=== PATIENT | female | born 1985 | race Hispanic/Latino ===

== ENCOUNTER 2017-02-01 13:47 | Emergency (ER) | payer OTHER ==
[~2017-02-01 13:47] MED LIST: HYDR1TAB91 PO; IBUP-1152 PO; PRENATAL VIT
[2017-02-01 13:51] VITALS: BP 129/90; PULSE 70; RESP 16; O2SAT 97
[2017-02-01 14:38] VITALS: BP 115/72; PULSE 69; RESP 16; O2SAT 100
--- NOTE | 2017-02-01 15:06 | ED.REPORT ---
HPI-Headache Date of Service February 01, 2017 ED Provider: Dr. Perla The patient is a 31 y/o female with a history of depression and self mutilation , who presents to the ED with a headache she thinks may be associated with an abnormal bump present on the right side of her head. The bump has been present for several years but has not ever been painful. She has felt a burning pain over the last few days ago and this pain intensified last night. She describes the sensation to be a burning in her head and she believes the bump feels warm to the touch. The pain initially started at a 4/10 and is now an 8/10. Associated symptoms also include left shoulder pain, chills, nausea, and drowsiness. She denies fever, cough, chest pain, back pain, vomiting, and abdominal pain. She had a cold last week that has resolved. Nursing Notes Stated Complaint: HEADACHES Chief Complaint: Headache Nursing Notes Reviewed: Yes Allergies: Uncoded Allergies: BLUEBERRIES (Allergy, Unknown, 02/01/17) Scheduled PRN Hydrocod/APAP-Expunged, Do Not Renew! (Hydrocod/APAP-Expunged, Do Not Renew!) 1 Tab Tablet 1-2 TAB PO Q3 PRN PRN For Pain IBUPROFEN-Expunged Drug, Do Not Renew! (IBUPROFEN-Expunged Drug, Do Not Renew!) 800 Mg Tablet 800 MG PO Q6 PRN PRN For Pain Miscellaneous Medications ([ Vit]) General Time Seen by MD: 15:06 Transferred From: retirement Chief Complaint Headache Hx Obtained From: Patient Arrived By: Walk-in Sudden in Onset?: No Onset Occurred: 2 days ago Symptom Duration: Since onset Location: : Parietal right Quality: Burning, Painful Severity: Current: Moderate Severity: Maximum: Moderate Recent Healthcare: No recent doctor visit, No recent hospitalization Similar Sx Previous: Yes Past Medical History Past Medical History History of depression Self mutilation Past Surgical History No surgical history specified. Family History Noncontributory Smoking History Unknown if Ever Smoker Social History Other Social History: Good social support, Local resident Ambulatory Status Independent Review of Systems Review of Systems Note: +drowsiness Constitutional: Reports: Chills, Denies: Fever Ears / Nose / Throat: Denies: Sore throat GI: Reports: Nausea, Denies: Abdominal pain, Vomiting Musculoskeletal: Reports: Joint pain (left shoulder), Denies: Back pain Neurologic: Reports: Headache Complete sys rev & neg: except as marked. Respiratory: Denies: Non-productive cough Cardiovascular: Denies: Chest pain Physical Exam Initial Vital Signs Vital Signs (First) Date Time Temp Pulse Resp B/P Pulse Ox O2 Delivery O2 Flow Rate FiO2 02/01/17 13:51 36.6 70 16 129/90 97 Room Air Initial VS: Reviewed, Vital signs normal Respiratory: Breath sounds normal, No respiratory distress Cardiovascular: Regular rate & rhythm, Heart sounds normal Abdomen / GI: Soft, Non-tender Extremities: Vascular intact, Neuro intact, No swelling Skin: Warm, Dry, No cyanosis Psychiatric: Mood/affect normal, Behavior normal, Normal thought content General/Constitutional: Awake, Alert, Well appearing Head / Eyes: Normocephalic, PERRL Warty growth of 1cm on the right side of the head. Neck: Atraumatic, Supple, No meningismus, No adenopathy, No swelling Neurologic: Speech NL, No motor deficits, No sensory deficits Upper Extremity / MS: Full range of motion, Neurologic intact, Vascular intact Left Shoulder: Positive: Tenderness present... (Mild) Interpretation & Diagnostics Lab Results Interpretation Result Diagram: 02/01/17 1445 02/01/17 1445 Test 02/01/17 14:45 White Blood Count 5.0th/mm3 (3.8-10.1) Red Blood Count 4.38mil/mm3 (3.90-5.20) Hemoglobin 12.8g/dL (12.0-15.6) Hematocrit 39.3% (35.0-46.0) Mean Corpuscular Volume 89.7fL (81-100) Mean Corpuscular Hemoglobin 29.2pg (27.0-35.0) Mean Corpuscular Hemoglobin Concent 32.6% (32.0-37.0) Red Cell Distribution Width 12.9% (12.3-15.4) Platelet Count 268bil/L (150-400) Neutrophils (%) (Auto) 47.4% (40-74) Lymphocytes (%) (Auto) 42.4% (14-46) Monocytes (%) (Auto) 8.0% (4-12) Eosinophils (%) (Auto) 1.8% (0-5) Basophils (%) (Auto) 0.2% (0-3) Erythrocyte Sedimentation Rate 17mm/hr (0-32) Sodium Level 135mEq/L (134-144) Potassium Level 3.8mEq/L (3.5-5.2) Chloride Level 99mEq/L (97-108) Carbon Dioxide Level 25mmol/L (18-29) Blood Urea Nitrogen 11mg/dL (6-20) Creatinine 0.46mg/dL (0.57-1.00) Estimat Glomerular Filtration Rate 228mL/min (>59) Glucose Level 84mg/dL (60-99) Calcium Level 9.8mg/dL (8.5-10.1) Magnesium Level 2.0mg/dL (1.6-2.6) C-Reactive Protein 0.1mg/dL (0.0-0.5) Hold Felix Top Tube Received (Received) X-Ray Interpretation Xray Interpretation: IMPRESSION: Unremarkable left shoulder radiographs. No fracture. Dictated by: Ga Charles M.D. on 02/01/2017 at 15:07 Approved by: Ga Charles M.D. on 02/01/2017 at 15:08 X-Ray Ordered: Shoulder left Re-Eval/Medical Decision Med Decision/Clinical Course The patient's growth on the side of her head is a warty type growth, there is no sign of infection. As far as the patient's headache there are no concerning symptoms such as those of meningitis or subarachnoid hemorrhage. Patient was also having some left shoulder pain with palpation, seems musculoskeletal in nature. There is no sign of a joint infection or cellulitis. The patient was treated symptomatically feeling much improved upon discharge. Source of Hx: Old records Re-Evaluation/Progress : Time of Eval: 16:45 Re-Evaluation/Progress Note: Lab results and X-Rays are discussed with the patient as well as the plan to discharge. The patient understands and agrees with the plan. All questions have been answered at this time. Counseled Regarding: Diagnosis, Lab results, Need for follow-up, When/why to return to ED, Need for admission Discharge & Departure Impression: Primary Impression: Headache Headache type: unspecified Headache chronicity pattern: unspecified pattern Intractability: not intractable Qualified Code: R51 - Headache Disposition: Home Discharge Condition All VS Reviewed: Yes Condition: Improved Patient Instructions: Acute Headache (ED) Additional Instructions: Thank you for entrusting us with your care.Your results are reassuring. Please return to the emergency department if you develop a fever or have any new or worsening symptoms occur. Referrals: Teodora Busby (PCP) Scribe Attestation Portions of this note were transcribed by Winston Alamo and Michell Minor. I, Dr. Perla personally performed the history, physical exam and medical decision- making; I reviewed and confirmed the accuracy of the information in the transcribed note. Signed by: Winston Minor, José Miguelibes, 02/01/2017 and 1820. copies to: Teodora Busby Jena M MD February 01, 2017 15:06 Winston Alamo February 01, 2017 15:25 Michell Minor February 01, 2017 18:13
[2017-02-01] MEDS ORDERED: ProchlorPERazine 5 mg/mL 2 mL Inj IVPUSH ONE (15:25)
[2017-02-01] MEDS ORDERED: 0.9% Sodium Chloride 1,000 ML IV ONE (15:25)
[2017-02-01 15:36] LABS: BASOPHILS % (AUTO) 0.2 % (0-3); EOSINOPHILS % (AUTO) 1.8 % (0-5); Mean Corpuscular Hemoglobin 29.2 pg (27.0-35.0); Mean Corpuscular Volume 89.7 fL (81-100); NEUTROPHILS % (AUTO) 47.4 % (40-74); Platelet Count 268 bil/L (150-400)
--- NOTE | 2017-02-01 16:09 | DRSVH ---
PROCEDURE: X-RAY LEFT SHOULDER, MINIMUM TWO VIEWS ([id number]) INDICATIONS: pain TECHNIQUE: 3 views of the shoulder were acquired. COMPARISON: None. FINDINGS: Bones: No fractures or dislocations. No suspicious bony lesions. Visualized ribs appear intact. N o significant degenerative changes are evident. Soft tissues: No suspicious soft tissue calcifications. IMPRESSION: Unremarkable left shoulder radiographs. No fracture. Dictated by: Ga Charles M.D. on 02/01/2017 at 15:07 Approved by: Ga Charles M.D. on 02/01/2017 at 15:08
[2017-02-01 16:42] LABS: ERYTHROCYTE SEDIMENTATION RATE 17 mm/hr (0-32)
[2017-02-01 17:03] VITALS: BP 108/72; PULSE 60; RESP 17; O2SAT 100
[2017-02-01 17:15] VITALS: BP 108/72; PULSE 60; RESP 17; O2SAT 100
== END 2017-02-01 16:59 | disposition home or self-care (01) ==
LOC: SED 13:47
DX: R51 Headache (principal); Z91.5 Personal history of self-harm
CPT/HCPCS: 36415; 73030; 80048; 83735; 85025; 85651; 86140; 96361; 96374; 96375; 99285; J0780; J1200; J1885; J7030

== ENCOUNTER 2017-06-29 19:35 | Emergency (ER) | payer OTHER ==
[~2017-06-29] VITALS: Ht 160 cm; Wt 81.8 kg
[2017-06-29 19:45] VITALS: BP 118/84; PULSE 91; RESP 16; O2SAT 100
--- NOTE | 2017-06-29 20:49 | DRSVH ---
PROCEDURE: CT BRAIN WITHOUT CONTRAST ([id number]) INDICATIONS: dizziness, numbness to face TECHNIQUE: Noncontrast 4.5 mm thick angled axial sections acquired from the foramen magnum to the vertex, with c oronal reformats. COMPARISON: [facility], CT, BRAIN W/O CONTRAST, 03/07/2014, 21:36. FINDINGS: Image quality: Excellent. CSF spaces: Basal cisterns are patent. No extra-axial fluid collections. Ventricles are normal in size and shape. Brain: No midline shift. No intracranial masses or hemorrhage. Singleton-white matter interface is norm al. Skull and face: Calvarium and visualized facial bones are intact, without suspicious lesions. Sinuses: Visualized sinuses and mastoids are clear. IMPRESSION: 1. No acute intracranial process. Dictated by: Anastasia Calhoun M.D. on 06/29/2017 at 20:47 Approved by: Anastasia Calhoun M.D. on 06/29/2017 at 20:47
--- NOTE | 2017-06-29 21:16 | ED.REPORT ---
HPI-Neurologic Deficit Date of Service Jun 29, 2017 ED Provider: Gordon Brown MD The patient is a 31 year old female with a history of migraine and HTN not on medication presenting to the ED complaining of notes bilateral facial numbness onset when she woke up this morning. She note bilateral s that the numbness extends down to her left arm as well. The patient reports a headache, and the arm symptoms that are exacerbated by movement. She denies any history of neck trauma or numbness before. She does do a fair bit of heavy lifting of boxes at work and may have strained her neck at work Nursing Notes Stated Complaint: FACIAL NUMBNESS Chief Complaint: Neuro Symptoms/ Deficits Nursing Notes Reviewed: Yes Allergies: Uncoded Allergies: BLUEBERRIES (Allergy, Unknown, 02/01/17) Scheduled Famotidine (Pepcid) 20 Mg Tablet 20 MG PO BID Scheduled PRN Hydrocod/APAP-Expunged, Do Not Renew! (Hydrocod/APAP-Expunged, Do Not Renew!) 1 Tab Tablet 1-2 TAB PO Q3 PRN PRN For Pain IBUPROFEN-Expunged Drug, Do Not Renew! (IBUPROFEN-Expunged Drug, Do Not Renew!) 800 Mg Tablet 800 MG PO Q6 PRN PRN For Pain Naproxen (Naprosyn) 500 Mg Tablet 500 MG PO BID PRN PRN For Pain Miscellaneous Medications ([ Vit]) General Time Seen by Provider: 21:05 Chief Complaint Other (facial numbness) Hx Obtained From: Patient Arrived By: Walk-in Sudden in Onset?: Yes Onset Occurred: 13 - 16 hours ago Symptom Duration: Since onset Location: : Head Radiation: : Arm left Associated with: Reports: Headache Exacerbated by: Movement Related History: Reports: Hypertension Immunizations: Unknown Recent Healthcare: No recent hospitalization, Recent doctor visit Similar Sx Previous: No Risk Factors IC Bleed Risk Stratification No Blood thinners, No Coagulation disorder, No EtOH use, No Prior epidural bleed RF Statements: Risk factors reviewed Past Medical History Past Medical History History of depression Self mutilation HTN Migraine Past Surgical History No surgical history specified. Family History Noncontributory Smoking History Unknown if Ever Smoker Social History Other Social History: Good social support, Local resident Ambulatory Status Independent Review of Systems Constitutional: Denies: Chills, Fever Respiratory: Denies: Shortness of breath Cardiovascular: Denies: Palpitations GI: Denies: Nausea, Vomiting Musculoskeletal: Denies: Neck pain Neurologic: Reports: Headache, Numbness (and tingling in face and left arm) Complete sys rev & neg: except as marked. Physical Exam Initial Vital Signs Vital Signs (First) Date Time Temp Pulse Resp B/P Pulse Ox O2 Delivery O2 Flow Rate FiO2 06/29/17 19:45 36.6 91 16 118/84 100 Room Air Initial VS: Reviewed, Vital signs normal ENT: Mucous membranes moist Abdomen / GI: Soft, Non-tender Back: No CVA tenderness Lymphatic: No lymphadenopathy Extremities: Vascular intact, Neuro intact Skin: Warm, Dry Psychiatric: Mood/affect normal, Behavior normal General/Constitutional: Awake, Alert, No acute distress Head / Eyes: Atraumatic, Normocephalic, PERRL Respiratory / Chest: Atraumatic, Breath sounds NL, Breath sounds = bilat, No respiratory distress Cardiovascular: Heart rate NL, Regular rhythm, Heart sounds NL Neurologic: Oriented X3, Speech NL Decreased sensation in left hand subjectively Neck: Atraumatic, Supple, Full range of motion Tenderness with compression to neck Interpretation & Diagnostics Lab Results Interpretation Result Diagram: 06/29/17 2144 06/29/17 2144 Test 06/29/17 21:44 06/29/17 21:45 White Blood Count 8.4th/mm3 (3.8-10.1) Red Blood Count 4.10mil/mm3 (3.90-5.20) Hemoglobin 12.2g/dL (12.0-15.6) Hematocrit 36.5% (35.0-46.0) Mean Corpuscular Volume 89.0fL (81-100) Mean Corpuscular Hemoglobin 29.8pg (27.0-35.0) Mean Corpuscular Hemoglobin Concent 33.4% (32.0-37.0) Red Cell Distribution Width 12.7% (12.3-15.4) Platelet Count 249bil/L (150-400) Neutrophils (%) (Auto) 55.3% (40-74) Lymphocytes (%) (Auto) 34.4% (14-46) Monocytes (%) (Auto) 7.8% (4-12) Eosinophils (%) (Auto) 2.3% (0-5) Basophils (%) (Auto) 0.1% (0-3) Erythrocyte Sedimentation Rate 26mm/hr (0-32) Prothrombin Time 10.0sec (8.1-12.5) Prothromb Time International Ratio 0.94ratio Activated Partial Thromboplast Time 27.8sec (22.8-33.0) Sodium Level 138mEq/L (134-144) Potassium Level 3.6mEq/L (3.5-5.2) Chloride Level 101mEq/L (97-108) Carbon Dioxide Level 27mmol/L (18-29) Blood Urea Nitrogen 10mg/dL (6-20) Creatinine 0.66mg/dL (0.57-1.00) Estimat Glomerular Filtration Rate 151mL/min (>59) Glucose Level 109mg/dL (60-99) Calcium Level 9.2mg/dL (8.5-10.1) Total Bilirubin 0.2mg/dL (0.0-1.2) Aspartate Amino Transf (AST/SGOT) 19U/L (0-50) Alanine Aminotransferase (ALT/SGPT) 20U/L (0-32) Alkaline Phosphatase 78U/L (25-150) Total Protein 7.4g/dL (6.4-8.4) Albumin 4.2g/dL (3.4-5.0) Hold Felix Top Tube Received (Received) ECG Interpretation Time: 21:24 Interpreted by: ED physician Normal ECG Interpretation: Normal ECG w/ rate of... (69), Normal sinus rhythm CT Head Interpretation IMPRESSION: 1. No acute intracranial process. Dictated by: Anastasia Calhoun M.D. on 06/29/2017 at 20:47 Study: Head CT no contrast Interpretation / Wet Read by: Interpret - Radiologist Re-Eval/Medical Decision Med Decision/Clinical Course 31-year-old female presents with bilateral neurologic symptoms not consistent with stroke. CT is negative. Bilateral facial numbness is subjective only and there is no associated motor issue. Left arm issues appear to be more related to neck. It is elicitable and made worse by compression and extension of the C-spine and facial symptoms may be migrainous in character. Arm symptoms are clearly radiculopathy. There is no leg involvement. Provided with soft collar, single dose Decadron, ongoing Naprosyn and Pepcid. Follow up with PCP. Re-Evaluation/Progress : Time of Eval: 22:26 Re-Evaluation/Progress Note: Patient rechecked. Discussed lab results, plan to give steroids and a soft collar, and plan discharge. All questions addressed at this time. Counseled Regarding: Diagnosis, Lab results, Need for follow-up, When/why to return to ED Discharge & Departure Impression: Primary Impression: Cervical radiculopathy Additional Impression: Migraine equivalent syndrome Disposition: Home Discharge Condition All VS Reviewed: Yes Condition: Improved Patient Instructions: Cervical Radiculopathy (ED), Migraine Headache (ED), Soft Cervical Collar (ED) Additional Instructions: The face symptoms are almost surely the result of migraine. It is not necessary to have a headache, while you still have other associated symptoms. There is no likelihood of a stroke or other serious cause. Your CAT scan was normal. The arm symptoms are more suggestive of pressure on the nerve as it exits the bones of the neck. Wear a soft collar nightly for the next 4-5 nights. Begin Naprosyn twice daily for five days. Take Pepcid twice daily as long as you are taking Naprosyn. Follow-up with your doctor in the office. Call tomorrow for follow-up in the next few days. Los sntomas de la leelee son nasreen seguramente el resultado de la migraa. No es necesario tener dolor de sebastian, mientras que usted todava tiene otros s ntomas asociados. No hay probabilidad de un derrame u otra causa seria. Hall TAC fue normal. Los sntomas del brazo son ms sugestivos de presin sobre el nervio a medida que sale de los huesos del mak. Use un collar suave todas las noches para las prximas 4-5 noches. Comience Naprosyn dos veces al da sandrine eliane kim. Anatone Pepcid dos veces al da, siempre y cuando usted est tomando Naprosyn. Silvia un seguimiento con hall mdico en la oficina. Llame maana para el seguimiento en los prximos kim. Referrals: Teodora Busby (PCP) Scribe Attestation Portions of this note were transcribed by Calixto Neves. I, Dr. Brown personally performed the history, physical exam and medical decision-making; I reviewed and confirmed the accuracy of the information in the transcribed note. Signed by: Ibis Abreu, 06/29/2017 copies to: Teodora Busby Christopher W MD Jun 29, 2017 21:16 Jun 29, 2017 21:35
[2017-06-29 21:50] LABS: BASOPHILS % (AUTO) 0.1 % (0-3); EOSINOPHILS % (AUTO) 2.3 % (0-5); MONOCYTES % (AUTO) 7.8 % (4-12); Mean Corpuscular Hemoglobin 29.8 pg (27.0-35.0); NEUTROPHILS % (AUTO) 55.3 % (40-74); Platelet Count 249 bil/L (150-400)
[2017-06-29 22:13] LABS: ERYTHROCYTE SEDIMENTATION RATE 26 mm/hr (0-32)
[2017-06-29 22:17] LABS: INR 0.94 ratio
[2017-06-29] MEDS ORDERED: Dexamethasone 20 mg/2 mL Oral Solution PO ONE (22:30)
[2017-06-29] MEDS ORDERED: NAPR500T PO (22:34)
[2017-06-29] MEDS ORDERED: FAMO20T PO (22:34)
[2017-06-29 22:44] VITALS: BP 143/94; PULSE 77; RESP 19; O2SAT 97
[2017-06-29 23:00] VITALS: BP 143/94; PULSE 77; RESP 19; O2SAT 97
== END 2017-06-29 23:01 | disposition home or self-care (01) ==
LOC: SED 19:35
DX: M54.12 Radiculopathy, cervical region (principal); G43.909 Migraine, unspecified, not intractable, without status migrainosus; I10 Essential (primary) hypertension; F32.9 Major depressive disorder, single episode, unspecified; Z91.018 Allergy to other foods
CPT/HCPCS: 36415; 70450; 80053; 85025; 85610; 85651; 85730; 93005; 96374; 99285; J1885